=== PATIENT | female | born 1960 | race Caucasian/White ===

== ENCOUNTER 2020-07-03 12:44 | Inpatient (IN) | payer OTHER ==
[~2020-07-03] VITALS: Ht 154.9 cm; Wt 69.4 kg
--- NOTE | ~2020-07-03 | EMS ---
[address] [address] EMS Patient Care Report Name: MAX ROD Room #: 362-P ADM IN M.R.#: [id number] Admission: 07/03/20 Attend Phys: Jared Barton MD Discharge: Date of : 64 Report #: [id number] THIS REPORT FOR: //name// Report Transmitted: 07/06/2020 19:27 EMS Care Summary [place], [place]/[facility] Incident [id number] @ 07/03/2020 11:57 Incident Location [address] [facility] 209 Patient GISELLE LEONG Female, 59 Years 1960 Patient Address [address] [place] [address] Patient History Diabetes,Anxiety,Paranoid Schizophrenia,Novel Coronavirus (COVID-19), Patient Allergies No known allergies, Patient Medications Depakote, Aspirin, Benztropine, Proair, Olanzapine, Bupropion, Haloperidol, Metformin, Gabapentin, Trazodone, Gemfibrozil, Chief Complaint AMS Disposition Transported No Lights/[place] [facility] Reason Breathing Problem Transported To [facility] Narrative Station 28 responded immediately to the scene of Breathing Problems. M528 arrived first on scene, donned appropriate PPE, then made ALS contact. [address] [address] EMS Patient Care Report Name: MAX ROD Room #: 362-P [facility] IN An.#: [id number] Admission: 07/03/20 Attend Phys: Jared Barton MD Discharge: Date of : 64 Report #: [id number] Upon arrival, pt found alert by yelling/screaming nonsensically while laying in her bed. Staff report patient has had an AMS all day. Earlier this morning, pt's BGL was in the 40s and oral glucose administered. Even after BGL corrected, pt still remains altered. She tested + for COVID almost a week ago. Staff requesting patient to to ER for further workup. Assisted patient in standing then pivoting over to cot. Secured on via straps, rails up, paperwork received, then patient moved out to ambulance. Exhaust vents on. Primary ALS assessment performed. Vitals established. BGL acquired. Transport to [facility] initiated. Contacted with a 5 minute ETA, and report given. Pt remains unable to sit still throughout transport, but has no appreciable changes and maintains her own airway. Arrived at and patient to ER 05. Report to RN then care released. Initial Vitals @12:20P: 90,R: 21,BP: 121/71,Pain: 0/10,GCS: 11,Glucose: 72,SpO2: 95,Revised Trauma: 11, Assessments @12:19MENTAL:Combative,Confused,Other,Person Oriented,SKIN:HEENT:LUNG SOUNDS:ABDOMEN:PELVIS//GI:EXTREMITIES:PULSE:Radial: 2+ Normal,NEURO: Impression Altered Mental Status Procedures @12:19ALS AssessmentResponse: UnchangedSucceeded Timeline 11:56,Call Received 11:56,Dispatch Notified 11:57,Dispatched 11:58,En Route 12:02,On Scene 12:05,At Patient 12:19,ALS Assessment,Response: UnchangedSucceeded, 12:20,BP: 121/71 M,PULSE: 90,RR: 21 R,SPO2: 95 Ox,ETCO2: ,B,PAIN: 0,GCS: 11, 12:21,Depart Scene 12:31,At Destination 12:59,Call Closed Disclaimer [facility] [address] [place] [address] EMS Patient Care Report Name: YANDYSATURNINOMAX BUCIO GISELLE Room #: 362-P ADM IN .R.#: [id number] Admission: 07/03/20 Attend Phys: Jared Barton MD Discharge: Date of : 64 Report #: [id number] v1.1 Copyright 2020 [employer] This EMS Care Summary contains data elements from the applicable legal record (which may be displayed differently). It is designed to provide pertinent information for the following purposes: continuity of care, clinical quality, and state data reporting. The complete legal record is available to ED staff and administrators of the receiving hospital in [employer] Patient Tracker. All data is provided "as is."
[~2020-07-03 12:44] MED LIST: AEROCHAMBER MI1 EACH; ATIVAN0.5 MG PO; BENZTROPINE MES1 MG PO; BENZTROPINE MESY2 MG PO; CYMBALTA60 MG PO; DIABETA 2.5MG2.5 MG PO; FISH OIL 1,001000 M2 PO; GEMFIBROZIL 60600 MG PO; IBUPROFEN 600600 M1 PO; INVEGA SUS117 MG/0.7 IM; LIPITOR 20 MG T20 M1 PO; LIPITOR80 MG PO; PERPHENAZINE8 MG PO; PRINIVIL5 MG PO; RISPERDAL4 M1 PO; TOPAMAX50 MG PO; TRAZODONE HCL100 MG PO; TROKENDI XR50 MG PO; UNICOMPLEX M TA1 TA1 PO; VALPROIC A250 MG/51 PO; VENTOLIN HFA 1818 GM INH
[2020-07-03 13:54] LABS: HEMATOCRIT 35.1 % (37.0-47.0); HEMOGLOBIN 11.7 gm/dL (12.0-15.0); MCH 30.5 pg (26.0-34.0); MCHC 33.2 g/dL (28.0-37.0); MCV 91.8 fL (80.0-100.0); PLATELET COUNT 110 thou/uL (150-400); RBC 3.83 mil/uL (4.20-5.00); RDW 15.2 % (10.5-14.5); WBC 8.7 thou/uL (4.0-11.0)
[2020-07-03 14:15] LABS: ALBUMIN 2.9 g/dL (3.4-5.0); CALCIUM 9.3 mg/dL (8.5-10.1); MAGNESIUM 1.8 mg/dL (1.8-2.4); POTASSIUM 4.7 mmol/L (3.5-5.1); TOTAL BILIRUBIN 0.4 mg/dL (0.2-1.0); TOTAL PROTEIN 6.5 g/dL (6.4-8.2); TROPONIN-I 0.1 ng/mL (<0.06)
[2020-07-03 15:31] LABS: URINE BILIRUBIN NEGATIVE (Negative); URINE BLOOD NEGATIVE (Negative); URINE CLARITY CLEAR; URINE COLOR YELLOW; URINE GLUCOSE-RANDOM* NEGATIVE (Negative); URINE KETONES NEGATIVE (Negative); URINE LEUKOCYTES-REFLEX NEGATIVE (Negative); URINE NITRITE-REFLEX NEGATIVE (Negative); URINE PROTEIN (DIPSTICK) NEGATIVE (Negative); URINE SPECIFIC GRAVITY 1.025 (1.005-1.035); URINE UROBILINOGEN 0.2 E.U./dl (0.2-1.0)
[2020-07-03 15:38] LABS: AMP/METHAMP Negative (Negative); BARBITURATES Negative (Negative); BENZODIAZEPINES Negative (Negative); COCAINE Negative (Negative); METHADONE Negative (Negative); OPIATES Negative (Negative); PCP Negative (Negative)
--- NOTE | 2020-07-03 16:00 | NUR ---
OK TO GIVE HALDOL PER DR MENENDEZ- ONCE STAT
--- NOTE | 2020-07-03 16:01 | EKG ---
[facility] [place] [address] ELECTROCARDIOGRAM REPORT Name: MAX ROD Room #: 170-5 ADM IN M.R.#: [id number] Admission: 07/03/20 Attend Phys: Jared Barton MD Discharge: Date of : 64 Report #: [id number] THIS REPORT FOR: cc: Endy George MD, Dennis R MD Santiago, Patrick MD [facility] ~ THIS REPORT FOR: //name// [facility] ED Test Date: 2020-07-03 Test Time: 15:52:58 Pat Name: MAX ROD Department: Room: 170 Gender: F Ticket Writer: JOSE ANTONIO : 1960 Requested By: Robbin Mayes Order Number: [id number] MD: Bill Kim Measurements Intervals [place] Rate: 69 P: 53 NE: 137 QRS: 66 QRSD: 95 T: 44 QT: 393 QTc: 421 Interpretive Statements Sinus rhythm Low voltage, extremity leads No previous ECG available for comparison Electronically Signed On 07-03-2020 16:01:35 EQUIPMENT SERVICES ASSOCIATE by Bill Kim [email or web address] <ELECTRONICALLY SIGNED> By: Bill Kim MD, FACC 07/03/20 1601 1552 1552 Bill Kim MD, [facility] /EPI
--- NOTE | 2020-07-04 00:18 | NUR ---
Deborah called at this time. Gives order for non-violent restraints.
[2020-07-04] MEDS ORDERED: VALPROIC ACID250 MG PO (04:33)
[2020-07-04] MEDS ORDERED: BACLOFEN 10MG T10 MG PO (04:34)
[2020-07-04] MEDS ORDERED: TRIHEXYPHENIDYL2 M1 PO (04:36)
[2020-07-04] MEDS ORDERED: OLANZAPINE7.5 MG PO (04:37)
[2020-07-04] MEDS ORDERED: GEMFIBROZIL 60600 MG PO (04:38)
[2020-07-04] MEDS ORDERED: BENZTROPINE MES1 MG PO (04:38)
[2020-07-04] MEDS ORDERED: GAS RELIEF125 M1 (04:41)
[2020-07-04] MEDS ORDERED: NEURONTIN300 MG (04:42)
[2020-07-04] MEDS ORDERED: ULTRAM50 MG (04:43)
[2020-07-04] MEDS ORDERED: LISINOPRIL5 MG PO (04:44)
[2020-07-04] MEDS ORDERED: HALOPERIDO50 MG/1 ML IM (05:07)
[2020-07-04 06:01] LABS: HEMATOCRIT 34.7 % (37.0-47.0); HEMOGLOBIN 11.5 gm/dL (12.0-15.0); MCH 30.7 pg (26.0-34.0); MCHC 33.1 g/dL (28.0-37.0); MCV 92.6 fL (80.0-100.0); RBC 3.75 mil/uL (4.20-5.00); RDW 15.2 % (10.5-14.5); WBC 8.3 thou/uL (4.0-11.0)
[2020-07-04 06:46] LABS: ALBUMIN 2.3 g/dL (3.4-5.0); ANION GAP 11 mmol/L (7-16); BUN 21 mg/dL (7-18); CALCIUM 8.2 mg/dL (8.5-10.1); CHLORIDE 112 mmol/L (98-107); CO2 23 mmol/L (21-32); CREATININE 1.2 mg/dL (0.6-1.0); GLUCOSE 64 mg/dL (74-106); MAGNESIUM 1.7 mg/dL (1.8-2.4); SGOT 147 U/L (15-37); SGPT 35 U/L (30-65); SODIUM 146 mmol/L (136-145); TOTAL BILIRUBIN 0.3 mg/dL (0.2-1.0); TOTAL PROTEIN 5.8 g/dL (6.4-8.2); TROPONIN-I <0.06 ng/mL (<0.06)
[2020-07-04 06:49] LABS: POTASSIUM 3.1 mmol/L (3.5-5.1)
[2020-07-04 08:33] LABS: BE(vivo) -1.9 mmol/L (-2 to +3); HCO3 20.7 mmol/L (22.0-26.0); PCO2 29.2 mmHg (35.0-45.0); pH 7.468 (7.360-7.450); sO2 90.7 % (92.0-98.0)
[2020-07-04 08:34] LABS: PO2 54.5 mmHg (80.0-100.0)
[2020-07-04 20:45] VITALS: BP 113/65
--- NOTE | 2020-07-04 20:50 | NUR ---
CALLED REPORT TO 3W, NURSE REPORTS ROOM NO READY TILL 2104, WILL CALL BACK
[2020-07-04 21:48] VITALS: BP 113/65
[2020-07-04 22:13] VITALS: BP 136/66
[2020-07-05 05:00] VITALS: BP 130/71
--- NOTE | 2020-07-05 06:46 | NUR ---
Assumed pt care at 2200 from ED. Alert,agitated/restless and keeps trying to pull off restraints/frausto,as well as get off the bed. On 3 point restraints. VSS O2 on @ 4L/NC Sats 93%, has a non productive cough. Pt's tongue with dried blood from biting self attempts to clean tongue unsuccessful pt yelling "Stop". Pt's IV dislogded, inserted another IV on RFA after ten attempts as they blow up upon insertion and pt moving too much, IV infiltrated at this time, IVF stopped and IV discontinued. Will relay to oncoming nurse and IV team. Frausto patent to DD with dark yellow colored urine. Has bruises on elza knees. NSR on telemetry. Fall precautions in place.will continue to monitor pt.
[2020-07-05 08:01] VITALS: BP 186/76
[2020-07-05 10:15] LABS: ALBUMIN 2.3 g/dL (3.4-5.0); ANION GAP 12 mmol/L (7-16); BUN 12 mg/dL (7-18); CALCIUM 8.4 mg/dL (8.5-10.1); CHLORIDE 114 mmol/L (98-107); CO2 24 mmol/L (21-32); CREATININE 0.8 mg/dL (0.6-1.0); GLUCOSE 88 mg/dL (74-106); LIPASE 65 U/L (73-393); MAGNESIUM 1.6 mg/dL (1.8-2.4); PHOSPHORUS 1.3 mg/dL (2.5-4.9); SGOT 140 U/L (15-37); SGPT 53 U/L (30-65); SODIUM 150 mmol/L (136-145); TOTAL BILIRUBIN 0.6 mg/dL (0.2-1.0); TOTAL PROTEIN 6.4 g/dL (6.4-8.2); TROPONIN-I <0.06 ng/mL (<0.06)
[2020-07-05 10:16] LABS: POTASSIUM 3.4 mmol/L (3.5-5.1)
[2020-07-05 11:40] VITALS: BP 138/69
[2020-07-05 14:26] LABS: HEMATOCRIT 30.7 % (37.0-47.0); HEMOGLOBIN 10.5 gm/dL (12.0-15.0); MCHC 34.1 g/dL (28.0-37.0); MCV 91.1 fL (80.0-100.0); PLATELET COUNT 144 thou/uL (150-400); RBC 3.37 mil/uL (4.20-5.00); RDW 15.2 % (10.5-14.5); WBC 6.5 thou/uL (4.0-11.0)
[2020-07-05 14:48] LABS: ABSOLUTE NEUTROPHILS 5.7 thou/uL (1.4-8.2)
[2020-07-05 14:49] LABS: ANISOCYTOSIS 1+
--- NOTE | 2020-07-05 14:52 | NUR ---
INITIAL ASSESSMENT: Received consult. SHIVAM reviewed chart and spoke with nursing and attending physician. Pt was admitted from [facility] due to AMS. Pt placed in Enhanced Isolation due to COVID-19. Pt is febrile and on 4L of O2. Pt is on IV steroids. ID consulted. Pt placed in restraints. Pt is a weinstein of the state through [facility] Public Management Coordinator's Office. SHIVAM spoke with Torin Dickerson with the PA office to provide update. Per Torin, pt was to be evaluated for possible admission to [facility] unit. Pt with hx of bipolar. Torin confirms plan is for pt to return to [facility] when medically stable. SHIVAM faxed clinical info to [facility] and spoke with charge nurse, Liliane. Pt is normally ambulatory at the facility. Pt had her first positive COVID test on 06/25. No weekend discharge planned. SHIVAM is following to assist as needed with discharge planning.
[2020-07-05 16:29] VITALS: BP 123/70
--- NOTE | 2020-07-05 19:33 | NUR ---
PATIENT CONT TO BE QUITE RESTLESS. NOT EASILY REDIRECTED. CONT ON RESTRAINTS. NEW IV PLACED. WILL CONT WITH PLAN OF CARE.
--- NOTE | 2020-07-05 20:56 | HC ---
[facility] [place] [address] CONSULTATION Name: MAX ROD Room #: 362-P ADM IN M.Al.#: [id number] Admission: 07/03/20 Attend Phys: Jared Barton MD Discharge: Date of : 64 Report #: [id number] THIS REPORT FOR: cc: Endy George MD, Dennis R MD Kerstein,Marek Funez DO ~ DATE OF SERVICE: 07/04/2020 PRIMARY ATTENDING: Jared Barton MD CONSULTING PSYCHIATRIST: Marek Alvarado DO REASON FOR CONSULTATION: Delirium, agitation. SOURCES OF INFORMATION: Minimal records from [facility] where the patient resides. Also, the patient is a weinstein of the [facility] Public assistant administrator. Initial collateral was not available. At this point, the patient is delirious, unable to cooperate with interview. HISTORY OF PRESENT ILLNESS: This is a 59-year-old female who was brought to the Emergency Room in [facility] yesterday by EMS. She resides at [facility]. She is a weinstein. There is limited information due to change in mental status. I had spoken with Dr. Barton and he as well has very little information on the patient. From records that [facility] sent us, she has a diagnosis of paranoid schizophrenia, comorbidities of COPD, type 2 diabetes mellitus, hyperlipidemia. It lists her providers as not being local including a psychiatrist, - these appear to be [place] area kinds of numbers. In addition, I have some handwritten note. She has a prosthetic eye. Apparently, she was positive for COVID on 06/24/2020. Also has a medical history of constipation and cellulitis. Her medications at [facility] as best I can tell from their notes were albuterol, tramadol 50 mg q. 6 hours p.r.n., gabapentin 300 mg by mouth 4 times a day, trazodone 100 mg at bedtime, vitamin D3, zinc, Cogentin 1 mg twice daily, gemfibrozil 600 mg twice daily, lactulose 15 mL by mouth twice a day, olanzapine 7.5 mg twice daily, Artane 2 mg tab 1/2 a tablet 1 mg twice daily. Hopefully, she is not on both gabapentin and Cogentin. This looks like it maybe Depakote 250 mg capsule, baclofen 10 mg 3 times a day, Wellbutrin 150 mg daily, lisinopril 5 mg daily, metformin 500 mg daily with food, multivitamin, lisinopril 5 mg in any event. ALLERGIES: No known drug allergies on her [facility] paperwork, so unable to [address] [address] CONSULTATION Name: MAX ROD Room #: 362-P ADM IN M.R.#: [id number] Admission: 07/03/20 Attend Phys: Jared Bartno MD Discharge: Date of : 64 Report #: [id number] get otherwise. Past medical and past psychiatric history unable to be obtained or obtain review of systems. VITAL SIGNS: Today afebrile, pulse 98, respiratory rate 30, BP 132/47, O2 sat 96% on 2 liters of oxygen at 07:40 this morning. LABORATORY DATA: Most recently on the , H and H 11.5 and 34.7, white count 8.3, platelet count 112. The differential was done yesterday. It showed segmented neutrophil percentage at 70; bands of 11%; lymphocytes 6% which is low; monocytes 13%, is high. Arterial blood gas done this morning on 2.5 liters nasal cannula had pO2 of 54.5, pCO2 of 29.2, it was arterial. Chemistries from the : Sodium 146, potassium 3.1, chloride 112, bicarb 23, anion gap of 11. BUN 21, creatinine 1.2. Estimated GFR 46, glucose 64, calcium 8.2, magnesium 1.7. Total bili 0.3, AST 147, ALT 35. Ammonia actually was in 2013, so I ordered a stat ammonia. CK was 5518. Troponin less than 0.06. Total protein low at 5.8, albumin very low at 2.3. Urinalysis was clean. Toxicology done yesterday was negative. COVID-19 PCR serology was positive, this was known. Influenza A and B was negative. MENTAL STATUS EXAMINATION: Seen at the bedside in PPE. The patient was in arm restraints and right lower extremity. She had a purpura over her knees. Her tongue was swollen. She was in moderate distress. I did bring in a cup of water with a straw for her to drink, which she poorly tolerated. This is a well-developed, ill, disheveled-appearing female appearing much older than stated age. Attention fair. Concentration impaired. Speech is slurred at times and at times, she just not respond to any questions. definitie psyhcomotor agitated No psychomotor retardation. Unable to assess well for SI, HI, auditory, visual, or tactile hallucinations but she does appear as she is responding to external stimuli. Mood and affect were irritable, constricted and congruent. Insight impaired, judgment impaired. Fund of knowledge well below average. FORMULATION: A 59-year-old female, brought in for a delirium kind of picture. She was hypoxic with several electrolyte abnormalities as well as being COVID-19 positive still. Diagnoses at this time is delirium due to general medical condition namely hypoxia, COVID-19, electrolyte disturbance, acute kidney injury among others. Current medications, which I did adjust, I put her on scheduled IV Haldol 1 mg q. 6 starting at 10 this morning. I made her Geodon p.r.n. for severe agitation. I discontinued olanzapine, I discontinued the p.r.n. Haldol. Also, I have advised the hospice and Emergency Room staff as her being boarded in the Emergency Room and it is not advisable as [address] [address] CONSULTATION Name: MAX ROD Room #: 362-P ADM IN .R.#: [id number] Admission: 07/03/20 Attend Phys: Jared Barton MD Discharge: Date of : 64 Report #: [id number] contributing to her delirium. Continue to treat general medical condition. We will follow along with you. Avoid anticholinergic medications. I will continue to try and reach the Public assistant administrator's office on daily basis. Time spent on interview, review of records, coordination of care of this patient includes 50 minutes, greater than 30% of the time was spent on speaking to other providers and trying to reach the PA and coordination of care. STRENGTHS: she is insured as Medicaid. WEAKNESSES: Numerous including chronic mental illness, COVID-19 positive, very limited situation support. Addendium: Spoke to deputy ESTEPHANIE Campo. Patient is normally oriented x 4 and able to hold good conversation- so she is way off basline. I discussed Dr. Miller <ELECTRONICALLY SIGNED> By: Marek Alvarado DO 07/05/20 2056 1025 0417 Marek Alvarado DO /nt
[2020-07-05 21:34] VITALS: BP 153/87
[2020-07-06 04:51] VITALS: BP 137/58
[2020-07-06 06:27] LABS: ALBUMIN 2.2 g/dL (3.4-5.0); CREATININE 0.9 mg/dL (0.6-1.0); DIRECT BILIRUBIN 0.4 mg/dL (<0.1-0.2); TOTAL BILIRUBIN 0.8 mg/dL (0.2-1.0); TOTAL PROTEIN 6.5 g/dL (6.4-8.2)
--- NOTE | 2020-07-06 07:34 | NUR ---
CONRTINUES ON ROOM AIR. CONTINUES IN RESTRAINTS. IV FLUIDS, MAINTANCE.
[2020-07-06 08:06] VITALS: BP 160/93
--- NOTE | 2020-07-06 11:11 | HC ---
[facility] [place] [address] CONSULTATION Name: MAX ROD Room #: 362-P ADM IN M.Al.#: [id number] Admission: 07/03/20 Attend Phys: Jared Barton MD Discharge: Date of : 64 Report #: [id number] THIS REPORT FOR: cc: Endy George MD,Endy Black,Ole Fajardo MD ~ DATE OF SERVICE: 07/05/2020 INFECTIOUS DISEASE CONSULTATION. ATTENDING PHYSICIAN: Dr. Barton. REASON FOR EVALUATION: COVID-19 infection, complicated by pneumonitis and respiratory failure. HISTORY OF SUBJECTIVE: Chart reviewed, the patient examined. This is a 59-year-old with a significant psychiatric history including schizophrenia, who lives in a facility, noted to have acute mental status changes, was unable to give any sort of history. She is quite distressed, clearly markedly encephalopathic. She was evaluated and noted to be hypoglycemic. Initial chest x-ray was fairly unremarkable; however, repeat did show bilateral changes that suggest pneumonitis. She was confirmed to be COVID positive. She does have a significant bandemia as well. Creatinine initially was 2.0, repeat corrected to 1.2. Influenza antigen was negative. CPK total was 4395. Urinalysis was unremarkable. Rapid drug screen was unremarkable as well. ABGs: pH 7.468, pCO2 of 29.2, pO2 of 54.5, and 2.5 liters. Procalcitonin 1.4. Due to her COVID positivity, she was not able to go to the psychiatric unit. ALLERGIES: LISTED TO PROLIXIN, . CURRENT MEDICATIONS: Include acetaminophen, enoxaparin, methylprednisolone, , lorazepam, ziprasidone, insulin lispro, ondansetron as needed. PAST MEDICAL HISTORY: As noted above, schizophrenia, hypertension, hyperlipidemia, diabetes mellitus, COPD, and anxiety. SOCIAL HISTORY: Not available. FAMILY HISTORY: Not available. REVIEW OF SYSTEMS: Unobtainable. PHYSICAL EXAMINATION: GENERAL: She is in marked distress. She is restrained, is quite agitated. She [facility] [address] [place] [address] CONSULTATION Name: MAX ROD Room #: 362-P ADM IN ..#: [id number] Admission: 07/03/20 Attend Phys: Jared Barton MD Discharge: Date of : 64 Report #: [id number] appears chronically ill, undernourished. VITAL SIGNS: Temperature earlier 101.3, repeat was 100.0; pulse 62; respirations 30; blood pressure 138/69; saturation is 93%. SKIN: Notable for she has got some blistering type lesions over the right forearm. She has got multiple contused areas in bilateral lower extremities as well as the upper extremities. HEENT: Apparently, she bit her tongue, she has got dried blood in her mouth and on her lip, difficult to ascertain open her mouth. LUNGS: Scattered coarse breath sounds. HEART: Appears to be regular. I do not appreciate any murmur. ABDOMEN: Soft. There are no overt peritoneal signs. GENITOURINARY AND RECTAL: Deferred. LABORATORY DATA: TSH of 1.599. Most recent electrolytes; sodium 150, potassium , chloride 114, chloride 24, anion gap of 12, BUN and creatinine 12 and 0.8, glucose of 88. AST of 140. Ammonia elevated at 49. Recent chest x-ray, multifocal consolidating alveolar pneumonia consistent with the patient's COVID pneumonia diagnosis. ASSESSMENT: COVID-19 infection. The patient is really difficult to evaluate. She has been complicated by pneumonitis and impending respiratory failure, I think she would benefit from remdesivir. We will start empiric antibacterial therapy as well, certainly at risk for aspiration pneumonitis. She is on corticosteroids, may try to add some vitamin as well. She remains quite tenuous. It is difficult to what primary medical and what is psychiatric at this point. We will follow. <ELECTRONICALLY SIGNED> By: Ole Black MD 07/06/20 1111 1231 0821 Ole Black MD /nt
[2020-07-06 12:15] VITALS: BP 134/48
[2020-07-06 16:09] VITALS: BP 130/73
--- NOTE | 2020-07-06 19:55 | NUR ---
PATIENT CONT ON RESTRAINTS. SHE KEEPS ON FIGHTING AND ATTEMTPING TO TAKE THEM OFF. NOT EASILY REDIRECTED. CONT ON FLUIDS FOR HYDRATION. EATS VERY SCNATILY. WILL CONT WITH PLNA OF CARE.
[2020-07-06 20:49] VITALS: BP 152/105
[2020-07-07 03:46] VITALS: BP 152/77
--- NOTE | 2020-07-07 04:58 | NUR ---
CONTINUES TO BE ANXIOUS AND PARANOID THROUGH THE NIGHT. CONT. ON IV FLIUDS. ENCOUARGED TO DRINK SOME FLUIDS AND APPLY LIP BALM. HER MOUTH IS VERY DRY AD CHAPPED.
[2020-07-07 05:25] LABS: URINE BILIRUBIN NEGATIVE (Negative); URINE BLOOD 3+ (Negative); URINE CLARITY SL CLOUDY; URINE COLOR YELLOW; URINE GLUCOSE-RANDOM* NEGATIVE (Negative); URINE KETONES TRACE (Negative); URINE LEUKOCYTES-REFLEX NEGATIVE (Negative); URINE PROTEIN (DIPSTICK) TRACE (Negative); URINE SPECIFIC GRAVITY 1.025 (1.005-1.035)
[2020-07-07 05:27] LABS: URINE NITRITE-REFLEX POSITIVE (Negative)
[2020-07-07 05:46] LABS: CREATININE 0.8 mg/dL (0.6-1.0); DIRECT BILIRUBIN 0.3 mg/dL (<0.1-0.2); TOTAL BILIRUBIN 0.6 mg/dL (0.2-1.0)
[2020-07-07 05:50] LABS: AMORPHOUS URATES Few /LPF (None Seen); BACTERIA-REFLEX 1-9 Few /HPF (None Seen); CRYSTALS None Seen /LPF (None Seen); HYALINE CASTS 0-3 Few /LPF (None Seen); MUCUS 4-6 Moderate strn/LPF (None Seen); SQUAMOUS 0-3 Few /LPF (0-3); TRANSITIONAL EPITHEL CELL 0-3 Few /LPF (None Seen); URINE WBC-REFLEX 0-5 Rare /HPF (0-5)
[2020-07-07 08:50] VITALS: BP 121/78
[2020-07-07 10:14] LABS: BE(vivo) -1.3 mmol/L (-2 to +3); HCO3 21.3 mmol/L (22.0-26.0); PCO2 29.1 mmHg (35.0-45.0); pH 7.482 (7.360-7.450); sO2 88.3 % (92.0-98.0)
[2020-07-07 10:15] LABS: PO2 49.4 mmHg (80.0-100.0)
[2020-07-07 10:33] LABS: CALCIUM 7.8 mg/dL (8.5-10.1); CREATININE 0.9 mg/dL (0.6-1.0); MAGNESIUM 1.4 mg/dL (1.8-2.4)
[2020-07-07 12:35] VITALS: BP 137/81
--- NOTE | 2020-07-07 12:36 | NUR ---
PT IS ALERT TO SELF, CONFUSED. IV IS PATENT WITH FLUIDS RUNNING. PT HAS 5L O2 PER NC. RESTRAINTS FOR SAFETY, PT HAS GOOD 2+ PULSES ON ALL EXTREMITIES. PT VERY AGITATED, REPORTING SHE WANTS A CIGARETTE. POOR APPETITE, FIGUEROA CATH IN PLACE. WILL CONTINUE TO MONITOR FOR SAFETY.
[2020-07-07 15:46] VITALS: BP 127/76
[2020-07-07 19:21] VITALS: BP 129/64
--- NOTE | 2020-07-08 02:15 | NUR ---
continues to pull against restriants and is all over the bed. continually fussy and shouting, very difficult to keep pulled up in the bed. bed alarm remains set. attempted to reorient to surroungings. she is able to say her name and ask for cigarettes and juice. careplan reviewed.
[2020-07-08 06:00] VITALS: BP 133/70
[2020-07-08 06:10] LABS: ABSOLUTE NEUTROPHILS 8.5 thou/uL (1.4-8.2); BASOPHILS 0.3 % (0.0-2.0); EOSINOPHILS 0.1 % (0.0-3.0); HEMOGLOBIN 10.7 gm/dL (12.0-15.0); LYMPHOCYTES 7.3 % (24.0-44.0); MCH 30.3 pg (26.0-34.0); MCHC 32.2 g/dL (28.0-37.0); PLATELET COUNT 202 thou/uL (150-400); POLYS 86.3 % (36.0-66.0); RBC 3.51 mil/uL (4.20-5.00); RDW 15.2 % (10.5-14.5); WBC 9.8 thou/uL (4.0-11.0)
[2020-07-08 06:26] LABS: ALBUMIN 2.1 g/dL (3.4-5.0); CALCIUM 7.7 mg/dL (8.5-10.1); CREATININE 0.6 mg/dL (0.6-1.0); MAGNESIUM 2.3 mg/dL (1.8-2.4); POTASSIUM 3.7 mmol/L (3.5-5.1); TOTAL BILIRUBIN 0.7 mg/dL (0.2-1.0); TOTAL PROTEIN 5.4 g/dL (6.4-8.2)
[2020-07-08 08:10] VITALS: BP 130/63
[2020-07-08 11:32] VITALS: BP 117/42
--- NOTE | 2020-07-08 14:34 | NUR ---
SHIVAM reviewed chart and spoke with nursing and attending physician. Pt remains in Enhanced Isolation due to COVID-19. Pt is in restraints. Pt is afebrile and on 5L of O2. Pt is on IV abx and IV steroids. Pt is completing course of Remdesivir. SHIVAM faxed clinical updates to [facility] for review. SHIVAM provided update to Torin Dickerson with the [facility] PA office. Plan is for pt to return to [facility] or go to [facility] unit when medically stable. SHIVAM is following to assist as needed with discharge planning.
--- NOTE | 2020-07-08 14:43 | EKG ---
[facility] [place] [address] ELECTROCARDIOGRAM REPORT Name: MAX ROD Room #: 362-P ADM IN M.R.#: [id number] Admission: 07/03/20 Attend Phys: Jared Barton MD Discharge: Date of : 64 Report #: [id number] THIS REPORT FOR: cc: Endy George MD, Dennis R MD Santiago,Bill [facility] ~ THIS REPORT FOR: //name// [facility] Test Date: 2020-07-08 Test Time: 13:47:00 Pat Name: MAX ROD Department: Room: 362 P Gender: F Barrel Ribs Solderer: LITTLE : 1960 Requested By: Jared Barton Order Number: [id number] MD: Bill Kim Measurements Intervals [place] Rate: 58 P: 56 AL: QRS: 45 QRSD: 135 T: 21 QT: 458 QTc: 450 Interpretive Statements Artifact NSR LOW VOLTAGE IN FRONTAL LEADS Nonspecific intraventricular conduction delay Compared to ECG 07/03/2020 15:52:58 No significant change Electronically Signed On 07-08-2020 14:42:56 LINING FINISHER by Bill Kim [email or web address] <ELECTRONICALLY SIGNED> By: Bill Kim MD, FACC 07/08/20 1442 1347 1347 Bill Kim MD, FAC /EPI
[2020-07-08 15:28] VITALS: BP 94/76
--- NOTE | 2020-07-08 19:26 | NUR ---
ASSUMED CARE OF PT AT 0700. PT VERY LETHARGIC AND SLEEP FOR MOST OF THE SHIFT. SB LOW 40'S DR AWARE. OTHER VSS. IVF INFUSING PER ORDER, FIGUEROA TO DD. PT DENIES PAIN. PT TOLERATES DINNER. WILL CONTINUE TO MONITOR.
[2020-07-08 19:49] VITALS: BP 122/62
[2020-07-09 05:09] VITALS: BP 82/29
[2020-07-09 05:16] VITALS: BP 105/47
[2020-07-09 06:08] LABS: HEMATOCRIT 26.6 % (37.0-47.0); HEMOGLOBIN 9.1 gm/dL (12.0-15.0); MCH 31.4 pg (26.0-34.0); MCHC 34.1 g/dL (28.0-37.0); MCV 92.3 fL (80.0-100.0); RBC 2.88 mil/uL (4.20-5.00); RDW 15.2 % (10.5-14.5); WBC 5.2 thou/uL (4.0-11.0)
--- NOTE | 2020-07-09 06:16 | NUR ---
Assumed pt care at 1900. A/OX1,drowsy but awakens easily and holds a conversation this shift including asking for "burgers" for breakfast. Pts heartrate has been in the 30-40"s all night,asymptomatic and tells the staff to leave her alone when being checked on. Afebrile. Puente patent to DD with yellow urine draining. No Bm this shift. Pt offeres [place] juice frequently per request. Bilateral wrist restraints in place, pt pulls on O2/IV when realesed. Bruising persists all over,with non pitting edema on RFA. PIV infusing via RFA w/o any problems noted. Fall precauitons in place,resting w/o distres will continue to monitor pt.
[2020-07-09 06:33] LABS: CALCIUM 7.6 mg/dL (8.5-10.1); CREATININE 0.7 mg/dL (0.6-1.0); POTASSIUM 3.5 mmol/L (3.5-5.1)
[2020-07-09 07:07] VITALS: BP 88/40
[2020-07-09 13:50] VITALS: BP 120/49
[2020-07-09 15:18] VITALS: BP 123/47
--- NOTE | 2020-07-09 15:41 | NUR ---
SHIVAM reviewed chart and spoke with nursing and attending physician. Pt remains in Enhanced Isolation due to COVID-19. Pt is afebrile and on 5L of O2. Pt is on IV abx and IV steroids. Pt is completing course of Remdesivir. Pt is in restraints. SHIVAM provided update to Torin Dickerson with the [facility] Public Letterpress Setter's office. Plan is for pt to return to [facility] when medically stable. SHIVAM is following to assist as needed with discharge planning.
--- NOTE | 2020-07-09 17:45 | NUR ---
PT ALERT AND ORIENTED TIMES TWO. YELLS OUT OFTEN, BUT IS EASY TO REDIRECT. IVF INFUSING PER ORDER. VSS, FIGUEROA TO DD. PT HAS VERY POOR APPETITE. WILL CONTINUE TO MONITOR.
[2020-07-09 20:05] VITALS: BP 115/44
[2020-07-10 04:29] VITALS: BP 105/45
[2020-07-10 04:38] VITALS: BP 89/35
--- NOTE | 2020-07-10 05:44 | NUR ---
ASSUME CARE 1900. PT/VITALS STABLE. BP RUN SOFT/HR RUNS LOW IN 40s AND DIPS TO 30s WHEN SHE SLEEPS. INTERMEDIATE GENERALIZED MUSCLE ACHES WITH TYLENOL FOR RELIEF. NO DISTRESS NOTED. A/O TO PERSON AND PLACE. ASNSWERS QUESTIONS APPROPRIATELY. EPISODES OF FORGETFULNESS AND MILD CONFUSION NOTED BUT EASILY REORIENTED. ON 5LNL. SB/SA NOTED ON MONITOR. ASSESSMENT CHARTED. PROGRESSING MODERATELY WITH POC. PLAN IS CONTINUE WITH ABX THERAPY AND CONTINUE TO MONITOR LOC AND RESPIRATORY FUNCTION FOR IMPROVEMENT. WILL CONTINUE TO FOLLOW WITH POC
[2020-07-10 06:32] LABS: CALCIUM 7.7 mg/dL (8.5-10.1); CREATININE 0.7 mg/dL (0.6-1.0); POTASSIUM 3.8 mmol/L (3.5-5.1)
--- NOTE | 2020-07-10 12:40 | NUR ---
Nutrition: pt seen d/t LOS. Admitted d/t acute psychosis, delirium and +COVID-19. PMHx of schizophrenia, HTN and HLD. Stable wt hx since admit, no known wt losses. Pt has had a poor appetite, AMS and refusing some meals. Noted PO of 10% x 1 meal documented and per nsg is not eating well at all. Some intermittent episodes of AMS/confusion but otherwise redirectable. Afebrile on 5L O2. Will order Ensure Enlive BID to supplement diet and would benefit from liberalized regular diet if PO intakes remain <50%. Pt at low risk with interventions in place.
--- NOTE | 2020-07-10 12:50 | NUR ---
IV TEAM RN TO BEDSIDE TO PLACE PIV, PT PULLED LAST ONE OUT. RIGHT ANTERIOR FOREARM PIV, 20GX1.75IN, PLACED USING US GUIDANCE, X1. BEDSIDE RN NOTIFIED THIS RN THAT PT PULLED IT OUT, 10MIN AFTER PLACED. NOTIFIED HER THAT PROVIDER SHOULD CONSIDER CHANGING MEDS TO PO.
--- NOTE | 2020-07-10 13:12 | NUR ---
SHIVAM reviewed chart and spoke with nursing and attending physician. Pt remains in Enhanced Isolation due to COVID-19. Pt febrile and is on IV abx. Pt is on 5L of O2 and on IV steroids. Pt has been taken out of restraints. Psych is following. SHIVAM faxed clinical updates to [facility] and left message for Liliane, pt's charge nurse, to confirm they are able to accept pt back if she is ready for discharge to [facility] over the weekend. Unsure if pt will go to [facility] for inpt psych. Pt's legal guardian/[facility] [employer] office will need to be notified of pt's discharge disposition and to give consent for discharge. SHIVAM updated Torin Dickerson with the [facility] office. Finalized discharge orders/summary will need to be faxed to [facility] and the PA office when available. Chart will need to be copied. Nursing will need to call report to the facility. SHIVAM is available to assist as needed. [facility] OFFICE-- (after hours)
--- NOTE | 2020-07-10 19:16 | NUR ---
ASSUMED PATIENT CARE AT 0700. ALERT TO SELF. IMPULSIVE PULLING IV OUT THREE TIMES. DR DIETZ CHANGED IV TO PO. PATIENT DOESNT HAVE IV ACCESS. BACK TO RESTRAINT AT 1600. WILL KEEP MONITOR.
[2020-07-10 19:50] VITALS: BP 103/48
[2020-07-11 03:43] VITALS: BP 127/53
--- NOTE | 2020-07-11 06:40 | NUR ---
PT BEHAVIOR WAS THE BEST I HAVE SEEN SINCE HER ADMISSION. A LITTLE PATIENCE GOES A LONG WAY. PT SLEPT IN CHAIR ALL NIGHT AND UP TO BSC WITH X1 AND WALKER. PT ONLY REQUEST WAS FOR ATIVAN X1. VARIOUS PERIODS OF LUCIEN SHOWN ON THE TELE. NO OTHER ISSUES. CONTINUE WITH POC TO DC BACK TO [facility].
[2020-07-11 07:59] VITALS: BP 140/78
[2020-07-11 11:04] VITALS: BP 116/37
[2020-07-11 16:09] VITALS: BP 120/57
--- NOTE | 2020-07-11 17:03 | NUR ---
PT HAS BEEN IMPULSIVE THE WHOLE DAY, PT REORIENTED AND REEDUCATED. CONTINUED TO TAKE RESTRAINT OFF. EDUCATION GIVEN. 1650 PER SUPERVISOR GRINDING, KENNETH PT STATED SHE WANTED TO COMMIT SUICIDE. I WENT INTO PT ROOM, AND PT REPEATED THE SAME STATMENT, STATED SHE DOESNOT HAVE A PLAN. CALLED DR. UMANA AND MADE HIM AWARE. CALLED DR. BARNES AND UPDATED ABOUT PT SUICIDAL THOUGHTS. HE GAVE ME A PHONE ORDER FOR SEROQUEL 50MG Q4 PRN. NO ORDER FOR A ONE ON ONE WAS GIVEN. SELAM BIGGS MADE AWARE
[2020-07-11 21:58] VITALS: BP 118/44
[2020-07-12 04:44] VITALS: BP 109/53
--- NOTE | 2020-07-12 05:42 | NUR ---
PT TRANSFERRING FROM CHAIR TO BED WITH ASSIST AND IS TOLERATING FAIR. DENIES PAIN. RESTING COMFORTABLY. NO NEEDS VOICED. CALL LIGHT WITHIN REACH. FREQUENT OBSERVATION.
[2020-07-12 11:01] VITALS: BP 125/44
--- NOTE | 2020-07-12 13:37 | NUR ---
ASSUMED CARE OF PT AT 0700. PT CONFUSED, MOSTLY PLEASANT. IMPULSIVE WHEN NEEDS TO USE BATHROOM. OTHERWISE LARGELY COOPERATIVE. ATIVAN AND SEROQUEL ADMINISTERED PRN FOR GOOD RELIEF. UP TO BR W/ 1 ASSIST AND WALKER. VITALS STABLE. ON ROOM AIR. BLOOD SUGARS LOW BUT STABLE. DRINKING LOTS OF SOFT DRINK AND DECAF COFFEE. ANTICIPATE D/C BACK TO FACILITY OVER WEEKEND.
[2020-07-12 15:51] VITALS: BP 121/58
[2020-07-12 20:23] VITALS: BP 127/60
[2020-07-13 04:59] VITALS: BP 123/65
--- NOTE | 2020-07-13 06:19 | NUR ---
Pt. requested for ativan and tylenol at HS. She stated she slept well and denies any pain this am. She has been calm and cooperative though impulsive at times. She also is very forgetful and frequent reorientation given. Afebrile. Tolerating room air well and has occasional loose cough. Bed alarm on for safety.
[2020-07-13 07:26] VITALS: BP 118/49
[2020-07-13 14:00] VITALS: BP 120/62
[2020-07-13 15:00] VITALS: BP 117/64
[2020-07-13] MEDS ORDERED: PREDNISONE 20 M20 M1 PO (15:12)
[2020-07-13] MEDS ORDERED: CEFDINIR300 MG PO (15:12)
[2020-07-13 16:00] VITALS: BP 115/58
--- NOTE | 2020-07-13 16:49 | NUR ---
PT MEDICALLY STABLE FOR DISCHARGE BACK TO FACILITY. PT ALERT TO SELF ONLY, HX OF PSYCH ISSUES. CONSTANTLY YELLING THROUGH OUT THE DAY. PRN IM ATIVAN GIVEN WELL A SEROQUEL. DISCHARGE ORDERS RECIEVED. PT TO RETURN TO [facility] THIS EVENING. ATTEMPTED TO CALL REPORT TO [facility] AT [phone] WITH NO ANSWER. TRANSPORT ARRANGED FOR 1700.
--- NOTE | 2020-07-13 16:54 | NUR ---
PT FOUND SITTING ON FLOOR UPON ENTERING THE ROOM AT 1400. WHEN ASKED PATIENT SHE STATED SHE DID NOT FALL. THAT SHE WAS UNCOMFORTABLE LAYING IN BED SO SHE DECIDED TO SIT ON THE FLOOR. BED ALARM WAS NOT ON AT TIME OF EVENT, BUT PATIENT HAS LEARNED HOW TO TURN IT OF HERSELF. LAST STAFF MEMEBER IN ROOM ENSURED THAT BED ALARM WAS ON. PATIENT HAS YELLOW SOCKS AND ARM BAND IN ROOM BUT CONTINUES TO STRIP NAKED. IN ROOM CLOSEST TO NURSES STATION. NOTED NO INJURY UPON ASSESSMENT. DR. UMANA NOTIFIED WELL. PATIENTS BASELINE IS CONFUSED AND IMPULSIVE, CAME TO THE HOSPITAL FOR PSYCH ISSUES BUT TESTED POSTIIVE FOR COVID AND PLACED ON 3W. PATIENT IS A GUO OF [facility].
== END 2020-07-13 18:25 | DRG 871 ==
LOC: ER 12:44 → EROBS 15:04 → 3W 07-04 21:49
PROVIDERS: Emergency Medicine; Internal Medicine Pulmonary Disease; Specialist; ADMIT Internal Medicine; ATTEND Internal Medicine
PROC: XW033E5 Introduction of Remdesivir Anti-infective into Peripheral Vein, Percutaneous Approach, New Technology Group 5 (ICD-10-PCS; principal; 2020-07-05)
DX: A41.9 Sepsis, unspecified organism (principal); U07.1 COVID-19; J12.89 Other viral pneumonia; G92 Toxic encephalopathy; J96.21 Acute and chronic respiratory failure with hypoxia; N17.9 Acute kidney failure, unspecified; M62.82 Rhabdomyolysis; F23 Brief psychotic disorder; E46 Unspecified protein-calorie malnutrition; I10 Essential (primary) hypertension; E78.5 Hyperlipidemia, unspecified; J44.9 Chronic obstructive pulmonary disease, unspecified; F41.9 Anxiety disorder, unspecified; E86.0 Dehydration; E11.649 Type 2 diabetes mellitus with hypoglycemia without coma; Z88.8 Allergy status to other drugs, medicaments and biological substances; Z68.28 Body mass index [BMI] 28.0-28.9, adult; Z79.899 Other long term (current) drug therapy; Z23 Encounter for immunization
CPT/HCPCS: 10779; 10879

== ENCOUNTER 2020-07-25 12:04 | Emergency (ER) | payer OTHER ==
[~2020-07-25] VITALS: Ht 154.9 cm; Wt 70.3 kg
[~2020-07-25 12:04] MED LIST changes: +BACLOFEN 10MG T10 MG PO; +CEFDINIR300 MG PO; +GAS RELIEF125 M1; +HALOPERIDO50 MG/1 ML IM; +LISINOPRIL5 MG PO; +NEURONTIN300 MG; +OLANZAPINE7.5 MG PO; +PREDNISONE 20 M20 M1 PO; +TRIHEXYPHENIDYL2 M1 PO; +ULTRAM50 MG; +VALPROIC ACID250 MG PO
[2020-07-25] MEDS ORDERED: BENZTROPINE MESY2 MG PO (12:31)
[2020-07-25] MEDS ORDERED: LIPITOR80 MG PO (12:32)
[2020-07-25] MEDS ORDERED: TOPAMAX50 MG PO (12:32)
[2020-07-25] MEDS ORDERED: BACLOFEN 10MG T10 MG PO (12:33)
[2020-07-25] MEDS ORDERED: TRIHEXYPHENIDYL2 M1 PO (12:33)
[2020-07-25] MEDS ORDERED: NEURONTIN 300M300 M2 PO (12:34)
[2020-07-25] MEDS ORDERED: TRAMADOL 50 MG50 MG PO (12:37)
[2020-07-25] MEDS ORDERED: LIDOCAINE PAIN1 EACH TRANSDERM (13:49)
[2020-07-25] MEDS ORDERED: NORCO 5-325 TA1 EAC2 PO (13:50)
[2020-07-25 15:09] VITALS: BP 128/80
== END 2020-07-25 14:24 | disposition home or self-care (01) ==
LOC: ER 12:04
DX: S22.42XA Multiple fractures of ribs, left side, initial encounter for closed fracture (principal); S00.03XA Contusion of scalp, initial encounter; I10 Essential (primary) hypertension; E11.9 Type 2 diabetes mellitus without complications; E78.5 Hyperlipidemia, unspecified; J44.9 Chronic obstructive pulmonary disease, unspecified; F17.210 Nicotine dependence, cigarettes, uncomplicated; Z79.899 Other long term (current) drug therapy; Z88.8 Allergy status to other drugs, medicaments and biological substances; W19.XXXA Unspecified fall, initial encounter; Y93.89 Activity, other specified; Y92.89 Other specified places as the place of occurrence of the external cause; Y99.8 Other external cause status